=== PATIENT | male | born 1960 | race Asian ===

== ENCOUNTER 2018-06-17 16:19 | Emergency (ER) | payer MEDICARE ==
[~2018-06-17] VITALS: Ht 170.2 cm; Wt 118.5 kg
[~2018-06-17 16:19] MED LIST: ASPI-496 PO
[2018-06-17 17:14] LABS: ALBUMIN 3.2 g/dL (3.4-5.0); ANION GAP 6 mmol/L (5-15); CALCIUM 7.8 mg/dL (8.5-10.1); CHLORIDE 108 mmol/L (98-107); CREATININE 1.16 mg/dL (0.7-1.3)
[2018-06-17 17:18] LABS: TROPONIN I < 0.015 ng/mL (0.000-0.045)
[2018-06-17 17:19] LABS: BASOPHILS # (AUTO) 0.01 x10^3/uL (0-0.1); BASOPHILS % (AUTO) 0 % (0-1); EOSINOPHILS % (AUTO) 7 % (1-7); LYMPHOCYTES % (AUTO) 29 % (22-44); MD NO; MEAN CORPUSCULAR HEMOGLOBIN 32.1 pg (27.5-34.5); MEAN CORPUSCULAR VOLUME 94.4 fL (81-97); MEAN PLATELET VOLUME 9.4 fL (7.4-10.4); MONOCYTES # (AUTO) 0.64 x10^3/uL (0.2-0.8); MONOCYTES % (AUTO) 8 % (2-9); NEUTROPHILS # (AUTO) 4.23 x10^3/uL (1.8-6.8); NEUTROPHILS % (AUTO) 56 % (42-75); PLATELET COUNT 190 x10^3/uL (130-400); RED BLOOD COUNT 4.53 x10^6/uL (4.38-5.82)
--- NOTE | 2018-06-17 18:55 | NUR ---
pt called to room from lobby
--- NOTE | 2018-06-17 19:22 | NUR ---
PT HERE FOR SOB THAT STARTED YESTERDAY. PT ALSO HAS FREQUENT PRODUCTIVE COUGH. VSS. SPOUSE AT BEDSIDE. CALL LIGHT IN REACH
[2018-06-17 19:42] VITALS: BP 146/79
--- NOTE | 2018-06-17 19:50 | NUR ---
Patient given discharge instructions and they have confirmed that they understand the instructions. Patient ambulatory with steady gait.
== END 2018-06-17 19:54 | disposition home or self-care (01) ==
LOC: ED 19:48
DX: J20.8 Acute bronchitis due to other specified organisms (principal); J45.909 Unspecified asthma, uncomplicated; Z87.891 Personal history of nicotine dependence; I10 Essential (primary) hypertension
CPT/HCPCS: 36415; 71045; 80048; 82040; 84484; 85025; 93005; 99284